=== PATIENT | male | born 1995 ===

== ENCOUNTER 2018-09-02 10:31 | Emergency (ER) | payer BC ==
[2018-09-02 10:44] VITALS: TEMP 98
--- NOTE | 2018-09-02 11:08 | ED PDOC ---
Arrival/HPI - General Chief Complaint: ENT Problem Time Seen by Provider: 09/02/18 10:45 Historian: Patient - History of Present Illness Narrative History of Present Illness (Text): 23 y/o male with no significant PMH presents to the ED c/o right ear pain x 1 week. Pt thinks he may have gotten some water stuck in the ear after showering last week. He visited another ER 2 days ago, was diagnosed with otitis externa, and given antibiotic drops that he has been using twice daily without relief. Has not taken any medication for pain. Denies fevers, chills, mastoid tenderness, sore throat, vision changes, tinnitus, vertigo, sinus congestion, neck pain, chest pain, SOB, cough, abdominal pain, N/V, or any other associated symptoms. Past Medical History - Provider Review Nursing Documentation Reviewed: Yes - Infectious Disease Hx of Infectious Diseases: None - Psychiatric Hx Substance Use: No - Surgical History Other/Comment: right shoulder repair - Anesthesia Hx Anesthesia: Yes Hx Anesthesia Reactions: No Hx Malignant Hyperthermia: No Family/Social History - Physician Review Nursing Documentation Reviewed: Yes Family/Social History: No Known Family HX Smoking Status: Never Smoked Hx Alcohol Use: No Hx Substance Use: No Allergies/Home Meds Allergies/Adverse Reactions: Allergies No Known Allergies Allergy (Verified 09/02/18 10:44) Home Medications: Home Meds Medication Instructions Recorded Confirmed Ciprofloxacin/Dexamethasone 4 drop AD BID 09/02/18 09/02/18 [Ciprodex Otic] Review of Systems - Physician Review All systems were reviewed & negative as marked: Yes - Review of Systems Constitutional: Normal, Fevers Eyes: Normal. absent: Vision Changes, Photophobia, Eye Pain ENT: Hearing Changes (right hearing loss), Other (right ear pain). absent: Sore Throat, Rhinorrhea, Epistaxis, Sinus Congestion Respiratory: Normal. absent: SOB, Cough Cardiovascular: Normal. absent: Chest Pain, Palpitations, Syncope Gastrointestinal: Normal. absent: Abdominal Pain, Nausea, Vomiting Genitourinary Male: Normal. absent: Dysuria, Frequency Musculoskeletal: Normal. absent: Arthralgias, Back Pain Skin: Normal. absent: Rash Neurological: Normal. absent: Headache, Dizziness Endocrine: Normal Hemo/Lymphatic: Normal Psychiatric: Normal Physical Exam Vital Signs Reviewed: Yes Vital Signs Temp Pulse Resp BP Pulse Ox 09/02/18 10:40 98 F 86 20 121/63 99 Temperature: Afebrile Blood Pressure: Normal Pulse: Regular Respiratory Rate: Normal Appearance: Positive for: Well-Appearing, Non-Toxic, Comfortable Pain Distress: None Mental Status: Positive for: Alert and Oriented X 3 - Systems Exam Head: Present: Atraumatic, Normocephalic Pupils: Present: PERRL Extroacular Muscles: Present: EOMI Conjunctiva: Present: Normal Ears: Present: NORMAL TM (bilaterally), Other (right canal erythematous, swollen, small amount of purulent material; NO mastoid bogginess, tenderness or redness). No: Erythema (canal), Normal Canal, TM Bulging, Fluid, TM Perf Mouth: Present: Moist Mucous Membranes Pharnyx: Present: Normal. No: ERYTHEMA, EXUDATE, TONSILS ENLARGED Nose (External): Present: Atraumatic Nose (Internal): Present: Normal Inspection, Moist Neck: Present: Normal Range of Motion. No: Meningeal Signs, MIDLINE TENDERNESS Respiratory/Chest: Present: Clear to Auscultation, Good Air Exchange. No: Respiratory Distress, Accessory Muscle Use Cardiovascular: Present: Regular Rate and Rhythm, Normal S1, S2. No: Murmurs Back: Present: Normal Inspection Upper Extremity: Present: Normal Inspection, Normal ROM, NORMAL PULSES, Neurovascularly Intact, Capillary Refill < 2s. No: Cyanosis, Edema Lower Extremity: Present: Normal Inspection, Normal ROM. No: Edema Neurological: Present: GCS=15, CN II-XII Intact, Speech Normal, Motor Func Grossly Intact, Normal Sensory Function, Gait Normal Skin: Present: Warm, Dry, Normal Color. No: Rashes Lymphatic: No: Cervical Adenopathy Psychiatric: Present: Alert, Oriented x 3, Normal Insight, Normal Concentration, Normal Affect, Normal Mood Medical Decision Making ED Course and Treatment: Initial Plan: * Cipro PO * Ibuprofen Plan of care discussed with patient, and strict instructions given regarding prescriptions, importance of follow up, and signs to return to Emergency Department, to include mastoid tenderness, fever, chills, headache, or any other new/worsening symptoms. Patient verbalizes understanding of discussion. Patient A&Ox3, ambulating with steady gait, stable for discharge home. Disposition/Present on Arrival - Present on Arrival Any Indicators Present on Arrival: No History of DVT/PE: No History of Uncontrolled Diabetes: No Urinary Catheter: No History of Decub. Ulcer: No History Surgical Site Infection Following: None - Disposition Have Diagnosis and Disposition been Completed?: Yes Diagnosis: Otitis externa Disposition: HOME/ ROUTINE Disposition Time: 11:20 Patient Plan: Discharge Condition: STABLE Discharge Instructions (ExitCare): Outer Ear Infection (DC) Additional Instructions: Ibuprofen/tylenol for pain Antibiotic 500mg every 12 hours for 10 days Followup with ENT within 2 days Followup with primary doctor within 2 days Return to Er for any new/worsening symptoms Prescriptions: Ciprofloxacin [Cipro] 500 mg PO Q12H #20 tab Ibuprofen [Motrin Tab] 600 mg PO Q8H PRN #30 tab PRN Reason: Pain, Moderate (4-7) Referrals: William Otero DO [Staff Provider] - Follow up with primary Forms: [facility] ([place]), WORK NOTE
[2018-09-02 11:30] VITALS: BP 128/54; PULSE 72; RESP 19; O2SAT 100
== END 2018-09-02 11:30 | disposition home or self-care (01) ==
LOC: ED 10:31
DX: H60.91 Unspecified otitis externa, right ear (principal)